=== PATIENT | female | born 1960 | race African-American/Black ===

== ENCOUNTER 2019-03-18 17:25 | Emergency (ER) | payer BC ==
[~2019-03-18] VITALS: Ht 157.5 cm; Wt 56.8 kg
[2019-03-18 17:45] VITALS: BP 200/92
[2019-03-18] MEDS ORDERED: TETRACAINE 0.5% OPHTH SOLUTION 4ML BOTTLE. ONE (17:45)
[2019-03-18] MEDS ORDERED: FLUORESCEIN OPHTH TEST STRIP. ONE (17:45)
[2019-03-18] MEDS ORDERED: ERYT1OIN6 OP (17:59)
[2019-03-18] MEDS ORDERED: TETRACAINE 0.5% OPHTH SOLUTION 4ML BOTTLE. OS ONE (18:00)
[2019-03-18] MEDS ORDERED: FLUORESCEIN OPHTH TEST STRIP. OS ONE (18:00)
--- NOTE | 2019-03-18 18:00 | PHYS DOC ---
Past Medical History Past Medical History: Asthma, Hypertension, Hypothyroid Past Surgical History: No Surgical History Alcohol Use: None Adult General Chief Complaint Chief Complaint: FOREIGN BODY/EYES HPI HPI Patient is a 58 year old female who presents with foreign body sensation in the left eye. The patient is also having swelling of the left upper eye lid. She states it has been this way since she woke up at 1330 (she works nights). Denies any other symptoms. Complete ROS were reviewed and found to be within normal limits, except as documented in the HPI Current Medications Current Medications Current Medications Medications (Trade) Dose Ordered Sig/Shant Start Time Stop Time Status Last Admin Dose Admin Fluorescein Sodium (Ful-Rimma) 1 strip 1X ONCE 03/18/19 18:00 03/18/19 18:01 03/18/19 17:50 1 STRIP Tetracaine HCl (Tetracaine) 1 drop 1X ONCE 03/18/19 18:00 03/18/19 18:01 03/18/19 17:50 1 DROP Allergies Allergies Allergies Coded Allergies Type Severity Reaction Last Updated Verified codeine Allergy Severe RASH 03/18/19 Yes lisinopril Allergy Severe PASSES OUT 03/18/19 Yes Physical Exam Physical Exam Constitutional: Well developed, well nourished, no acute distress, non-toxic appearance. [] HENT: Normocephalic, atraumatic, bilateral external ears normal, oropharynx moist, no oral exudates, nose normal. [] Eyes: PERRLA, EOMI, conjunctiva mildly erythematous left eye, no discharge, left upper eyelid edema, Performed exam with wood's lamp that shows a small corneal abrasion. Neurologic: Alert and oriented X 3, normal motor function, normal sensory function, no focal deficits noted. [] Psychologic: Affect normal, judgement normal, mood normal. [] Current Patient Data Vital Signs Vital Signs Date Time Temp Pulse Resp B/P (MAP) Pulse Ox O2 Delivery O2 Flow Rate FiO2 03/18/19 17:45 98.6 80 18 200/92 (128) 99 Room Air 98.6 EKG EKG [] Radiology/Procedures Radiology/Procedures [] Course & Med Decision Making Course & Med Decision Making Pertinent Labs and Imaging studies reviewed. (See chart for details) Patient has a small corneal abrasion and bleptharitis. Discussed with patient washing upper eye lid with soap and water. Will also place on Erythromycin and will have follow up with Ophthalmology if does not improve. Dragon Disclaimer Dragon Disclaimer This electronic medical record was generated, in whole or in part, using a voice recognition dictation system. Departure Departure Impression: Primary Impression: Blepharitis Additional Impression: Corneal abrasion Disposition: 01 HOME, SELF-CARE Condition: STABLE Referrals: NO PCP (PCP) Patient Instructions: Blepharitis, Eye - Corneal Abrasion, [id number] Additional Instructions: Thank you for visiting [facility]. We appreciate you trusting us with your care. If any additional problems come up don't hesitate to return to visit us. Please follow up with your primary care provider so they can plan additional care if needed and know about the problem that you had. If symptoms worsen come back to the Emergency Department. Any concerning symptoms that start such as chest pain, shortness of air, weakness or numbness on one side of the body, running high fevers or any other concerning symptoms return to the ER. You have been prescribed an antibiotic today to help fight your infection. Please take all of the antibiotic as directed. If after 48 hours the infection is not improving, please return for more care. If the infection worsens, return to ER for additional care. Scripts Erythromycin Base (Erythromycin) 1 Gm Oint...g. 1 GM OP QID for 5 Days, MISC 1/2 inch ribbon, apply 4 times daily to left eye. Prov: MOI ARRIETA APRN 03/18/19 Problem Qualifiers Primary Impression: Blepharitis Blepharitis type: unspecified type Laterality: left Eyelid: upper Qualified Codes: H01.004 - Unspecified blepharitis left upper eyelid Additional Impression: Corneal abrasion Encounter type: initial encounter Laterality: left Qualified Codes: S05.02XA - Injury of conjunctiva and corneal abrasion without foreign body, left eye, initial encounter MOI ARRIETA APRN Mar 18, 2019 18:00
== END 2019-03-18 18:10 | disposition home or self-care (01) ==
LOC: ER 17:25
DX: S05.02XA Injury of conjunctiva and corneal abrasion without foreign body, left eye, initial encounter (principal); H01.004 Unspecified blepharitis left upper eyelid; J45.909 Unspecified asthma, uncomplicated; E03.9 Hypothyroidism, unspecified; I10 Essential (primary) hypertension; Z88.5 Allergy status to narcotic agent; Z88.8 Allergy status to other drugs, medicaments and biological substances; X58.XXXA Exposure to other specified factors, initial encounter; Y93.89 Activity, other specified; Y92.89 Other specified places as the place of occurrence of the external cause; Y99.8 Other external cause status
CPT/HCPCS: 99283